=== PATIENT | male | born 1995 | race Caucasian/White ===

== ENCOUNTER 2018-02-14 15:06 | Emergency (ER) | payer OTHER ==
[2018-02-14 15:37] VITALS: BP 127/59
--- NOTE | 2018-02-14 16:08 | UC ---
Skin Complaint HPI - HPI Summary HPI Summary: right - History of Current Complaint Hx Obtained From: Patient Onset/Duration: Sudden Onset, Lasting Days, Still Present Timing: Constant Pain Intensity: 6 Pain Scale Used: 0-10 Numeric Location: Discrete - back of right calf Character: Swelling, Pain, Redness Aggravating Factor(s): Nothing Alleviating Factor(s): Nothing Associated Signs & Symptoms: Positive: Negative, Tenderness. Negative: Red Streaks <Katheryn Engel - Last Filed: 02/14/18 16:10> <Alex Jaramillo - Last Filed: 02/14/18 16:41> - History of Current Complaint Chief Complaint: UCLowerExtremity Time Seen by Provider: 02/14/18 15:23 Stated Complaint: SKIN COMPLAINT - Allergy/Home Medications Allergies/Adverse Reactions: Allergies Allergy/AdvReac Type Severity Reaction Status Date / Time No Known Allergies Allergy Verified 02/14/18 15:35 Review of Systems Constitutional: Negative Skin: Negative, Other - pain swelling and erythema around new tatoo on posterior right calf Eyes: Negative ENT: Negative Respiratory: Negative Cardiovascular: Negative Gastrointestinal: Negative Genitourinary: Negative Motor: Negative Neurovascular: Negative Musculoskeletal: Negative Neurological: Negative Psychological: Negative Is Patient Immunocompromised?: No All Other Systems Reviewed And Are Negative: Yes <Katheryn Engel - Last Filed: 02/14/18 16:10> PMH/Surg Hx/FS Hx/Imm Hx Previously Healthy: Yes - Surgical History Surgical History: None - Family History Known Family History: Positive: None - Social History Occupation: Employed Full-time Lives: With Family Alcohol Use: Occasionally Substance Use Type: None Smoking Status (MU): Never Smoked Tobacco <Katheryn Engel - Last Filed: 02/14/18 16:10> Physical Exam Triage Information Reviewed: Yes Appearance: Well-Appearing, No Pain Distress, Well-Nourished Vital Signs: Initial Vital Signs Temp 99.3 F 02/14/18 15:28 Pulse 80 02/14/18 15:28 Resp 13 02/14/18 15:28 BP 127/59 02/14/18 15:28 Pulse Ox 100 02/14/18 15:28 Vital Signs Reviewed: Yes Eye Exam: Normal Eyes: Positive: Conjunctiva Clear ENT Exam: Normal ENT: Positive: Normal ENT inspection, Hearing grossly normal. Negative: Trismus , Muffled voice, Hoarse voice Dental Exam: Normal Neck exam: Normal Neck: Positive: Supple, Nontender, No Lymphadenopathy Respiratory Exam: Normal Respiratory: Positive: Chest non-tender, Lungs clear, Normal breath sounds, No respiratory distress, No accessory muscle use Cardiovascular Exam: Normal Cardiovascular: Positive: RRR, Pulses Normal, Brisk Capillary Refill Musculoskeletal Exam: Normal Musculoskeletal: Positive: Strength Intact, ROM Intact, No Edema Neurological Exam: Normal Neurological: Positive: Alert, Muscle Tone Normal Psychological Exam: Normal Skin Exam: Normal Skin: Positive: Other - swelling red tender around new tatoo on back of right calf <Katheryn Engel - Last Filed: 02/14/18 16:10> Vital Signs: Initial Vital Signs Temp 99.3 F 02/14/18 15:28 Pulse 80 02/14/18 15:28 Resp 13 02/14/18 15:28 BP 127/59 02/14/18 15:28 Pulse Ox 100 02/14/18 15:28 <Alex Jaramillo - Last Filed: 02/14/18 16:41> Course/Dx - Course Course Of Treatment: warm compresses, bactrim and bactroban follow with pcp prn - Diagnoses Provider Diagnoses: cellulitis right calf <Katheryn Engel - Last Filed: 02/14/18 16:10> Discharge - Sign-Out/Discharge Documenting (check all that apply): Post-Discharge Follow Up - Billing Disposition and Condition Condition: STABLE Disposition: Home <Katheryn Engel - Last Filed: 02/14/18 16:10> - Billing Disposition and Condition Condition: STABLE Disposition: Home <Alex Jaramillo - Last Filed: 02/14/18 16:41> - Discharge Plan Condition: Stable Disposition: HOME Prescriptions: Mupirocin 2% OINT* [Bactroban 2 % Oint*] 1 applic TOPICAL BID #1 tube Sulfamethox/Trimethoprim DS* [Bactrim DS 800/160 TAB*] 1 tab PO BID #20 tab Patient Education Materials: Wound Infection (ED), Warm Compress or Soak (ED) Referrals: No Primary Care Phys,NOPCP [Primary Care Provider] - KRISH Chakraborty [Medical Doctor] - Additional Instructions: Per institutional requirements, I have reviewed the chart, however, I was not consulted specifically or made aware of this patient by the above midlevel provider. I did not personally evaluate, interact with , or disposition this patient.
== END 2018-02-14 16:17 | disposition home or self-care (01) ==
LOC: UCCORT 15:06
DX: L03.115 Cellulitis of right lower limb (principal)
CPT/HCPCS: 99212; G0463

== ENCOUNTER 2018-12-08 09:45 | Emergency (ER) | payer OTHER ==
[2018-12-08 10:32] VITALS: BP 139/69
--- NOTE | 2018-12-08 10:36 | UC ---
Throat Pain/Nasal Yg HPI - HPI Summary HPI Summary: Pt with h/o nasal polyps, deviated septum and recurrent sinusitis. Pt states was scheduled for sinus surgery when in [facility] but was cancelled and not rescheduled. Pt presents iwth 3-4 days progressive sinus pressure and discomfort. States has green secretions, sometimes bloody with + PND. Pt has tried otc decongestant and moist heat withlittle improvement. States has progressive face paoin and teeth achines. no cp, sob ears popping some l>R Medications reviewed this visit - History of Current Complaint Chief Complaint: UCRespiratory Stated Complaint: SINUS CONGESTION Time Seen by Provider: 12/08/18 10:34 Hx Obtained From: Patient Pain Intensity: 4 - Allergies/Home Medications Allergies/Adverse Reactions: Allergies Allergy/AdvReac Type Severity Reaction Status Date / Time seasonal Allergy Congestion Uncoded 12/08/18 10:24 Home Medications: Home Medications Dm/Acetaminophen/Doxylamine [Vicks Nyquil Cold & Flu N 15-6.25-325 mg] 1 cap PO ONCE PRN 12/08/18 [History Confirmed 12/08/18] PMH/Surg Hx/FS Hx/Imm Hx Previously Healthy: Yes - Surgical History Surgical History: None - Family History Known Family History: Positive: Hypertension, Non-Contributory - Social History Occupation: Employed Full-time, Employed Part-time Lives: With Family Alcohol Use: Weekly Alcohol Amount: 6 Substance Use Type: None Smoking Status (MU): Former Smoker When Did the Patient Quit Smoking/Using Tobacco: 2015 Review of Systems All Other Systems Reviewed And Are Negative: Yes Constitutional: Positive: Fatigue ENT: Positive: Ear Ache, Nasal Discharge, Sinus Congestion, Sinus Pain/ Tenderness Respiratory: Positive: Negative Physical Exam - Summary Physical Exam Summary: Vital Signs Reviewed: Yes A+Ox3, no distress Eyes: Conjunctiva Clear, [place] EOM intact and full ENT: Hearing grossly normal TM x 2 visualized b/l left with fluid, turbinates inflammed and boggy with thick green sputum, thick PND, + max sinus dscomfort L> R, mmoist, uvula midline, no exudate, no erythema Neck: Positive: Supple Respiratory: Positive: No respiratory distress, No accessory muscle use + CTA throughout no w/r Cardiovascular: RRR nl s1, s2 no m/r CBT <2 sec abd soft + BS nt/nd no guarding, no distension Musculoskeletal Exam: SO x 4 without difficulty Strength Intact, ROM Intact Neurological: Positive: Alert, + sensation throughout Psychological: Positive: Normal Response To Family Skin: Positive: no rash, no ecchymosis Triage Information Reviewed: Yes Vital Signs: Initial Vital Signs Temp 98.3 F 12/08/18 10:26 Pulse 91 12/08/18 10:26 Resp 16 12/08/18 10:26 BP 139/69 12/08/18 10:26 Pulse Ox 100 12/08/18 10:26 Throat Pain/Nasal Course/Dx - Course Course Of Treatment: Pt presents with progressive sinus pressure, dental discomfort, bloody green dsicharge VSS exam with boggy sinuses, thick green secretions, and pnd + TTP sinuses Abx secretion precaution resume flonase humifidy air - Differential Dx/Diagnosis Provider Diagnosis: Rhinosinusitis Discharge - Sign-Out/Discharge Documenting (check all that apply): Patient Departure All imaging exams completed and their final reports reviewed: No Studies - Discharge Plan Condition: Stable Disposition: HOME Prescriptions: Amoxicillin/Clavulanate TAB* [Augmentin TAB 875*] 875 mg PO BID #20 tab Patient Education Materials: Rhinosinusitis (ED) Referrals: Emanuel Mejia MD [Primary Care Provider] - Additional Instructions: - Stay well hydrated. Drink plenty of non-alcoholic, non-caffinated beverages. - Alternate ibuprofen (Advil, Motrin) 600mg and Tylenol every 3 hours for pain or fever. Take with food. Do NOT take for more than 4-5 days. - These infections are spread by secretions - do NOT share eating or drinking utensils - clean items you share with other people such as cell phones, computer mouse, TV remote, computer tablets,etc. Once you have been on antibiotics for 2 days, change your toothbrush and your pillowcase. - get plenty of restful sleep - humidify the air in the room where you sleep - boil water, run a hot steam shower, vaporizer, cups of water by heat register - okay to take over the counter decongestant and cough medication - it is recommended you take your nasal spray as previously prescribed - contact your doctor or return with questions or concerns - Billing Disposition and Condition Condition: STABLE Disposition: Home
== END 2018-12-08 10:48 | disposition home or self-care (01) ==
LOC: UCCORT 09:45
DX: J32.9 Chronic sinusitis, unspecified (principal); Z87.891 Personal history of nicotine dependence
CPT/HCPCS: 99212; G0463

== ENCOUNTER 2019-05-24 07:57 | Emergency (ER) | payer OTHER ==
[2019-05-24 08:14] VITALS: BP 125/58
--- NOTE | 2019-05-24 08:48 | ED ---
Throat Pain/Nasal Congestion - HPI Summary HPI Summary: 23yr old with the complaint of sore throat. Onset of symptoms yesterday, and with some associated nasal congestion. no sinus pain. No ear pain. Symptoms are moderate. he is concerned about having strep throat. - History of Current Complaint Chief Complaint: UCGeneralIllness Time Seen by Provider: 05/24/19 08:28 - Allergies/Home Medications Allergies/Adverse Reactions: Allergies Allergy/AdvReac Type Severity Reaction Status Date / Time seasonal Allergy Congestion Uncoded 05/24/19 08:16 Home Medications: Home Medications Pheniramine/P-Eph/Acetaminophn [Theraflu Flu & Sore Throat] 1 packet PO ONCE [History Confirmed 05/24/19] PMH/Surg Hx/FS Hx/Imm Hx Endocrine/Hematology History: Denies: Hx Diabetes, Hx Thyroid Disease Cardiovascular History: Denies: Hx Congestive Heart Failure, Hx Deep Vein Thrombosis, Hx Hypertension , Hx Myocardial Infarction, Hx Pacemaker/ICD Respiratory History: Denies: Hx Asthma, Hx Chronic Obstructive Pulmonary Disease (COPD), Hx Lung Cancer, Hx Pneumonia, Hx Pulmonary Embolism GI History: Denies: Hx Gall Bladder Disease, Hx Gastrointestinal Bleed, Hx Ulcer, Hx Urosepsis History: Denies: Hx Kidney Stones, Hx Renal Disease Neurological History: Denies: Hx Dementia, Hx Migraine, Hx Seizures, Hx Transient Ischemic Attacks (TIA) Psychiatric History: Denies: Hx Anxiety, Hx Depression, Hx Schizophrenia, Hx Bipolar Disorder Infectious Disease History: No Infectious Disease History: Denies: Traveled Outside the [place] in Last 30 Days - Family History Known Family History: Positive: None, Hypertension, Non-Contributory - Social History Occupation: Employed Full-time Lives: With Family Alcohol Use: Daily Alcohol Amount: 6 Substance Use Type: Reports: None Smoking Status (MU): Former Smoker Review of Systems Constitutional: Negative Positive: Sore Throat, Nasal Discharge All Other Systems Reviewed And Are Negative: Yes Physical Exam Triage Information Reviewed: Yes Vital Signs On Initial Exam: Initial Vitals Temp Pulse Resp BP Pulse Ox 98 F 80 18 125/58 97 05/24/19 08:09 05/24/19 08:09 05/24/19 08:09 05/24/19 08:09 05/24/19 08:09 Vital Signs Reviewed: Yes Appearance: Positive: Well-Appearing, No Pain Distress Skin: Positive: Warm, Skin Color Reflects Adequate Perfusion Head/Face: Positive: Normal Head/Face Inspection Eyes: Positive: EOMI ENT: Positive: Pharyngeal erythema, Nasal congestion, TMs normal Neck: Positive: Nontender Respiratory/Lung Sounds: Positive: Clear to Auscultation, Breath Sounds Present Cardiovascular: Positive: RRR. Negative: Murmur Abdomen Description: Negative: Distended Musculoskeletal: Positive: Strength/ROM Intact Neurological: Positive: Sensory/Motor Intact, Alert, Oriented to Person Place, Time, CN Intact II-III, Speech Normal Psychiatric: Positive: Normal - [place] Coma Scale Best Eye Response: 4 - Spontaneous Best Motor Response: 6 - Obeys Commands Best Verbal Response: 5 - Oriented Coma Scale Total: 15 Diagnostics - Vital Signs Vital Signs Temp Pulse Resp BP Pulse Ox 05/24/19 08:09 98 F 80 18 125/58 97 - Laboratory Lab Statement: Any lab studies that have been ordered have been reviewed, and results considered in the medical decision making process. EENT Course/Dx - Course Course Of Treatment: 23 yr old with pharyngitis. DC home. neg rapid strep. - Diagnoses Provider Diagnoses: Pharyngitis Discharge ED - Sign-Out/Discharge Documenting (check all that apply): Patient Departure All imaging exams completed and their final reports reviewed: No Studies - Discharge Plan Condition: Good Disposition: HOME Patient Education Materials: Pharyngitis (ED) Referrals: Emanuel Mejia MD [Primary Care Provider] - - Billing Disposition and Condition Condition: GOOD Disposition: Home
== END 2019-05-24 08:54 | disposition home or self-care (01) ==
LOC: UCCORT 07:57
DX: J02.9 Acute pharyngitis, unspecified (principal); Z87.891 Personal history of nicotine dependence
CPT/HCPCS: 87651; 99211; G0463